=== PATIENT | male | born 1985 | race Caucasian/White ===

== ENCOUNTER 2016-09-22 02:15 | Emergency (ER) | payer MEDICAID ==
--- NOTE | 2016-09-22 02:32 | Emergency Department Record ---
History of Present Illness - General Chief complaint: ENT Stated complaint: SORE THROAT Time Seen by Provider: 09/22/16 02:27 Source: Patient Mode of Arrival: Ambulatory Limitations: No limitations - History of Present Illness Initial comments: 31 yo male presents to ED with a CC of sore throat for the past 3 days. Patient reports finishing Zithromax 3 days ago for tonsillitis, and his symptoms have returned. Patient denies fevers, chills, or cough symptoms, denies health problems at his baseline. MD complaint: Sore throat Onset/Timin -: Days(s) Location: Throat Severity: Mild Quality: Other Consistency: Constant Improves with: None Worsens with: None Context-Epistaxis: Other Context- Dental: Other Context- Ear: Other Associated Symptoms: Cough, Sore throat, Other - Related Data Home Medications Medication Instructions Recorded Confirmed Last Taken Fluoxetine HCl [Prozac] 40 mg PO DAILY 09/22/16 09/22/16 Unknown Trazodone HCl 150 mg PO QHS 09/22/16 09/22/16 Unknown Allergies Allergy/AdvReac Type Severity Reaction Status Date / Time ketorolac tromethamine Allergy anxiety Verified 09/22/16 02:22 [From Toradol] attack Travel Screening - Travel/Exposure Within Last 30 Days Have you traveled within the last 30 days?: No - Travel/Exposure Within Last Year Have you traveled outside the [place] in the last year?: No - Additonal Travel Details Have you been exposed to anyone with a communicable illness?: No - Travel Symptoms Symptom Screening: None Review of Systems Constitutional: Denies: Chills, Fever, Malaise, Night sweats Eyes: Denies: Eye discharge, Eye pain ENT: Reports: Throat pain. Denies: Congestion, Ear pain, Epistaxis Respiratory: Denies: Cough, Dyspnea Cardiovascular: Denies: Chest pain, Dyspnea on exertion Endocrine: Denies: Fatigue, Heat or cold intolerance Gastrointestinal: Denies: Abdominal pain, Nausea, Vomiting Genitourinary: Denies: Incontinence, Retention Musculoskeletal: Denies: Arthralgia, Back pain, Gout, Joint swelling Skin: Denies: Bruising, Change in color Neurological: Denies: Abnormal gait, Confusion, Headache, Seizure Psychiatric: Denies: Anxiety Hematological/Lymphatic: Denies: Anemia, Blood Clots Past Medical History - SOCIAL HISTORY Smoking Status: Current every day smoker Alcohol Use: None Drug Use: None - RESPIRATORY Hx Respiratory Disorders: No - CARDIOVASCULAR Hx Cardio Disorders: No - NEURO Hx Neuro Disorders: Yes Hx Headaches: Yes - GI Hx GI Disorders: No - Hx Genitourinary Disorders: No - ENDOCRINE Hx Endocrine Disorders: No - MUSCULOSKELETAL Hx Musculoskeletal Disorders: No - PSYCH Hx Psych Problems: No - HEMATOLOGY/ONCOLOGY Hx Hematology/Oncology Disorders: No Family Medical History Any Significant Family History?: No Physical Exam - General General Appearance: Alert, Oriented x3, Cooperative, No acute distress Limitations: No limitations - Head Head exam: Atraumatic, Normocephalic, Normal inspection Head exam detail: negative: Abrasion, Contusion, Leija's sign, General tenderness, Hematoma, Laceration - Eye Eye exam: Normal appearance. negative: Conjunctival injection, Periorbital swelling, Periorbital tenderness, Scleral icterus - ENT Ear exam: negative: Auricular hematoma, Auricular trauma Nasal Exam: negative: Active bleeding, Discharge, Dried blood, Foreign body Mouth exam: negative: Drooling, Laceration, Muffled voice, Tongue elevation Throat exam: Normal inspection. negative: Tonsillar erythema, Tonsillomegaly, R peritonsillar mass, L peritonsillar mass - Neck Neck exam: Normal inspection. negative: Meningismus, Tenderness - Respiratory Respiratory exam: Normal lung sounds bilaterally. negative: Rales, Respiratory distress, Rhonchi, Stridor - Cardiovascular Cardiovascular Exam: Regular rate, Normal rhythm, Normal heart sounds - GI/Abdominal GI/Abdominal exam: Soft. negative: Rebound, Rigid, Tenderness - Rectal Rectal exam: Deferred - exam: Deferred - Extremities Extremities exam: Normal inspection. negative: Calf tenderness, Pedal edema, Tenderness - Back Back exam: Denies: CVA tenderness (R), CVA tenderness (L) - Neurological Neurological exam: Alert, Normal gait, Oriented X3 - Psychiatric Psychiatric exam: Normal affect, Normal mood - Skin Skin exam: Normal color. negative: Abrasion Type of lesion: negative: abrasion Course - Reevaluation(s) Reevaluation #1: 09/22/16 02:30 Reevaluation #2: 09/22/16 02:49 Strep is negative, patient updated on his result and he appears stable for discharge at this time. Will d/c home on Motrin for his symptoms. Disposition Disposition: Discharge Clinical Impression: Pharyngitis Qualifiers: Pharyngitis/tonsillitis etiology: unspecified etiology Qualified Code(s): J02.9 - Acute pharyngitis, unspecified Disposition: Home, Self-Care Condition: (2) Stable Instructions: Pharyngitis (ED) Additional Instructions: Return to ED if your symptoms worsen or if you have any concerns. Tylenol/Ibuprofen as needed for sore throat symptoms. Follow-up with your family doctor in 3-5 days as directed. Forms: Patient Portal Access Time of Disposition: 02:50
[2016-09-22] MEDS: IBUPROFEN 400 MG TABLET PO ONE (02:56)
[2016-09-22] MEDS: DEXAMETHASONE SOD PHOSPHATE 10MG/ML VIAL PO ONE (02:58)
== END 2016-09-22 02:58 | disposition home or self-care (01) ==
LOC: ER 02:15
DX: J02.9 Acute pharyngitis, unspecified (principal)
CPT/HCPCS: 87880; J1100; 99282